=== PATIENT | male | born 1940 | race Asian ===

== ENCOUNTER 2017-09-02 22:33 | Inpatient (IN) | payer MEDICARE, MEDICAID ==
--- NOTE | 2017-09-02 23:31 | ED Physician Chart ---
ED Chief Complaint/HPI - Patient Information Date Seen:: 09/02/17 Time Seen:: 22:45 Chief Complaint:: fractured left hip History of Present Illness:: This is a 77 yo male sent to this er for an evaluation and treatment of a fracture left hip. The patient fell about 11 hrs ago and also has an abrasion of the head with no ko. Allergies:: Allergies Allergy/AdvReac Type Severity Reaction Status Date / Time Penicillins Allergy Verified 09/02/17 22:38 Vitals:: Vital Signs - 8 hr 09/02/17 22:35 Temp 100.9 F HR 73 RR 18 BP 119/56 O2 Sat % 96 Historian:: EMS, Medical Records Review:: Nurse's Note Reviewed, Transfer documents Reviewed ED Review of Systems - Review of Systems General/Constitutional: No fever, No chills, No weight loss, No weakness, No diaphoresis, No edema, No loss of appetite, Other (this patient is unable to give a review of systems.) Skin: No skin lesions, No rash, No bruising Head: No headache, No light-headedness Eyes: No loss of vision, No pain, No diplopia ENT: No earache, No nasal drainage, No sore throat, No tinnitus Neck: No neck pain, No swelling, No thyromegaly, No stiffness, No mass noted Cardio Vascular: No chest pain, No palpitations, No PND, No orthopnea, No edema Pulmonary: No SOB, No cough, No sputum, No wheezing GI: No nausea, No vomiting, No diarrhea, No pain, No melena, No hematochezia, No constipation, No hematemesis G/U: No dysuria, No frequency, No hematuria Musculoskeletal: No bone or joint pain, No back pain, No muscle pain Endocrine: No polyuria, No polydipsia Psychiatric: No prior psych history, No depression, No anxiety, No suicidal ideation Hematopoietic: No bruising, No lymphadenopathy Allergic/Immuno: No urticaria, No angioedema Neurological: No syncope, No focal symptoms, No weakness, No paresthesia, No headache, No seizure, No dizziness, No confusion, No vertigo ED Past Medical History - Past Medical History Obtainable: Yes Past Medical History: HTN, CAD, CVA/TIA, Dyslipidemia, Dementia, Other (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 there is swelling and mild tenderness of the left hip area. Neuro/Psych: Alert/oriented (the patient is disoriented times four.), No focal deficits (there is left sided weakness) ED Labs/Radiology/EKG Results - EKG Interpretations EKG Time:: 23:13 Rate & Rhythm: rate= 75 sinus Hardwick: right ED Assessment - Assessment General Assessment: fracture left hip ED Septic Shock - . Is Septic Shock (SBP<90, OR Lactate>4 mmol\L) present?: No - <6hrs of presentation: Vital Signs: Vital Signs - 8 hr 09/02/17 22:35 Temp 100.9 F HR 73 RR 18 BP 119/56 O2 Sat % 96 ED Reassessment (Disposition) - Reassessment Reassessment Condition:: Unchanged - Diagnosis Diagnosis:: fracture left hip - Patient Disposition Discharge/Transfer:: Acute Care w/in this hosp Admitted to:: Med/Surg Admitting Medical Physician:: Nikhil Garrison Condition at Disposition:: Unchanged
[2017-09-03 00:03] LABS: HEMATOCRIT 39.9 % (41.0-60); HEMOGLOBIN 13.2 gm/dL (12-16); MEAN CELL VOLUME 90.3 fl (80-99); MEAN CORPUSCULAR HEMOGLOBIN 29.9 pg (27.0-31.0); MEAN CORPUSCULAR HGB CONC 33.1 pg (28.0-36.0); MEAN PLATELET VOLUME 8.9 fl; PLATELET COUNT 173 Th/cmm (150-400); RED BLOOD COUNT 4.42 Mil/cmm (3.80-5.80); RED CELL DISTRIBUTION WIDTH 13.3 % (11.5-20.0); WHITE BLOOD COUNT 13.5 Th/cmm (4.8-10.8)
[2017-09-03 00:13] LABS: ALB/GLOB RATIO 1.4 (1.0-1.8); ALBUMIN 4.2 gm/dL (4.2-5.5); ALKALINE PHOSPHATASE 63 U/L (34-104); ANION GAP 11.5 (7.0-16.0); BILIRUBIN,TOTAL 0.7 mg/dL (0.3-1.0); BUN - UREA NITROGEN 22 mg/dL (7-25); CALCIUM SERUM 9.4 mg/dL (8.6-10.3); CARBON DIOXIDE 25.2 mEq/L (21.0-31.0); CHLORIDE 105 mEq/L (98-107); CREATININE - SERUM 0.8 mg/dL (0.7-1.3); GLUCOSE 135 mg/dL (70-105); POTASSIUM SERUM 3.7 mEq/L (3.5-5.1); SGOT 22 U/L (13-39); SGPT/ALT 16 U/L (7-52); SODIUM SERUM 138 mEq/L (136-145); TOTAL PROTEIN,SERUM 7.3 gm/dL (6.0-8.3)
[2017-09-03 00:16] LABS: INR 0.9 (0.5-1.4); PROTHROMBIN TIME (TEST) 9.4 SECONDS (9.5-11.5)
[2017-09-03 00:34] LABS: LYMPHOCYTE 4 % (20-50); MONOCYTE 1 % (2-10); NEUTROPHILS 95 % (40-80); PLATELET ESTIMATE ADEQUATE (NORMAL)
[2017-09-03] MEDS ORDERED: Acetaminophen 500 MG TAB ONE (00:56)
[2017-09-03] MEDS ORDERED: Acetaminophen 500 MG TAB PO ONE (01:00)
[2017-09-03] MEDS ORDERED: Morphine Sulfate 2 mg/mL 1mL Syr IV PRN (04:40)
[2017-09-03] MEDS: D5-0.45NS 1,000 ML IV SCH (05:40)
--- NOTE | 2017-09-03 05:40 | History and Physical ---
History of Present Illness - HPI Chief Complaint: hip pain HPI: 77 y/o male who presents to [facility] ER for hip pain. This is a 77 yo male sent for an evaluation and treatment of a fracture left hip. The patient fell about 11 hrs ago and also has an abrasion of the head w/o LOC. While in the ER patient had initial labwork which revealed the following ... All Lab Results last 24 hours: Laboratory Results - last 24 hr 09/02/17 09/02/17 09/02/17 22:50 22:50 22:50 WBC 13.5 H RBC 4.42 Hgb 13.2 Hct 39.9 L MCV 90.3 MCH 29.9 MCHC Differential 33.1 RDW 13.3 Plt Count 173 MPV 8.9 Add Manual Diff YES Neutrophils (Manual) 95 H Lymphocytes 4 L Monocytes 1 L Platelet Estimate ADEQUATE PT 9.4 L INR 0.90 Sodium 138 Potassium 3.7 Chloride 105 Carbon Dioxide 25.2 Anion Gap 11.5 BUN 22 Creatinine 0.8 Est GFR ( Amer) TNP Est GFR (Non-Af Amer) TNP BUN/Creatinine Ratio 27.5 Glucose 135 H Calcium 9.4 Total Bilirubin 0.7 AST 22 ALT 16 Alkaline Phosphatase 63 Troponin I Total Protein 7.3 Albumin 4.2 Globulin 3.1 Albumin/Globulin Ratio 1.4 09/02/17 22:50 WBC RBC Hgb Hct MCV MCH MCHC Differential RDW Plt Count MPV Add Manual Diff Neutrophils (Manual) Lymphocytes Monocytes Platelet Estimate PT INR Sodium Potassium Chloride Carbon Dioxide Anion Gap BUN Creatinine Est GFR ( Amer) Est GFR (Non-Af Amer) BUN/Creatinine Ratio Glucose Calcium Total Bilirubin AST ALT Alkaline Phosphatase Troponin I < 0.01 L Total Protein Albumin Globulin Albumin/Globulin Ratio Patient had and xray of his left hip which revealed evidence of a fracture. He was subsequently admitted for further evaluation and treatment. Vital Signs: Last Vital Signs Temp 99.1 F 09/03/17 04:21 Pulse 70 09/03/17 04:21 Resp 19 09/03/17 04:21 BP 118/53 09/03/17 04:21 Pulse Ox 96 09/03/17 04:21 Past Medical History Cardiovascular: Report: HTN, Hyperlipidemia Pulmonary: Report: No Pertinent Hx [employer]: Report: CVA (w/ Left Hemiparesis) GI: Report: GERD Psych: Report: Bipolar, Depression, Other (dementia, pseudobulbar affect disorder) Musculoskeletal: Report: Other (left hip pain) Rheumatologic: Report: No pertinent Hx Infectious Disease: Report: No Pertinent Hx Renal/: Report: No Pertinent Hx Endocrine: Report: No Pertinent Hx Dermatology: Report: No Pertinent Hx - Past Surgical History Past Surgical History: No pertinent Hx Family Medical History - Family Member Mother History Unknown: Yes Social History Smoke: No Alcohol: None Drugs: None Lives: Senior Living - Medications Home Medications: Home Medication Medication Instructions Recorded Type Acetaminophen [Tylenol] 325 mg PO Q4HR PRN 09/02/17 History Aspirin EC [Ecotrin] 81 mg PO DAILY 09/02/17 History Cholecalciferol (Vitamin D3) 2,000 unit PO DAILY 09/02/17 History [Vitamin D3] Dextromethorphan/Quinidine 1 cap PO BID 09/02/17 History [Nuedexta 20mg-10mg] Docusate Sodium [Colace] 100 mg PO DAILY 09/02/17 History Lisinopril 10 mg PO DAILY 09/02/17 History Nifedipine [Procardia Xl] 60 mg PO DAILY 09/02/17 History Polyethylene Glycol 3350 [Miralax] 17 gm PO DAILY 09/02/17 History Simvastatin [Zocor] 20 mg PO HS 09/02/17 History - Allergies Allergies/Adverse Reactions: Allergies Allergy/AdvReac Type Severity Reaction Status Date / Time Penicillins Allergy Verified 09/02/17 22:38 Review of Systems - Review of Systems Constitutional: Report: No Significant Eyes: Report: No Significant ENT: Report: No Significant Respiratory: Report: No Significant Cardiovascular: Report: No Significant Gastrointestinal: Report: No Significant Genitourinary: Report: No Significant Musculoskeletal: Report: Other (left hip pain) Skin: Report: No Significant Neurological: Report: No Significant Physical Exam - Physical Exam HEENT: Report: Ears Nose Throat within normal limits, Pharnyx within normal limits Neck: Report: Within normal limits, Thyromegaly Cardiovascular Systems: Report: +s1/s2 noted, Regular, Rate and Rhythm Respiratory: Report: Breath Sounds are within normal limits Abdomen: Report: Non-tender to palpation Back: Report: Inspection of back is within normal limits. Extremities: Report: Non-tender to palpation. Skin: Report: Color of skin is within normal limits Neuro/Psych: Report: Mood affect is within normal limits - Lab Results All Lab Results last 24 hours: Laboratory Results - last 24 hr 09/02/17 09/02/17 09/02/17 22:50 22:50 22:50 WBC 13.5 H RBC 4.42 Hgb 13.2 Hct 39.9 L MCV 90.3 MCH 29.9 MCHC Differential 33.1 RDW 13.3 Plt Count 173 MPV 8.9 Add Manual Diff YES Neutrophils (Manual) 95 H Lymphocytes 4 L Monocytes 1 L Platelet Estimate ADEQUATE PT 9.4 L INR 0.90 Sodium 138 Potassium 3.7 Chloride 105 Carbon Dioxide 25.2 Anion Gap 11.5 BUN 22 Creatinine 0.8 Est GFR ( Amer) TNP Est GFR (Non-Af Amer) TNP BUN/Creatinine Ratio 27.5 Glucose 135 H Calcium 9.4 Total Bilirubin 0.7 AST 22 ALT 16 Alkaline Phosphatase 63 Troponin I Total Protein 7.3 Albumin 4.2 Globulin 3.1 Albumin/Globulin Ratio 1.4 09/02/17 22:50 WBC RBC Hgb Hct MCV MCH MCHC Differential RDW Plt Count MPV Add Manual Diff Neutrophils (Manual) Lymphocytes Monocytes Platelet Estimate PT INR Sodium Potassium Chloride Carbon Dioxide Anion Gap BUN Creatinine Est GFR ( Amer) Est GFR (Non-Af Amer) BUN/Creatinine Ratio Glucose Calcium Total Bilirubin AST ALT Alkaline Phosphatase Troponin I < 0.01 L Total Protein Albumin Globulin Albumin/Globulin Ratio - Assessment Assessment: left hip fracture leukocytosis HTN CVA w/ left hemiparesis hyperlipidemia dementia depression seizure disorder pseudobulbar affect disorder bipolar disorder - Plan Plan: keep NPO ortho consult - Dr. Sterling cardiac consult - Dr. Uriel Frausto CBC.CMP, UA start IV fluids
[2017-09-03] MEDS: Levofloxacin 500mg/100mL 500 MG/100 ML BAG IV SCH (05:52)
[2017-09-03 07:59] LABS: HEMATOCRIT 38.1 % (41.0-60); HEMOGLOBIN 12.7 gm/dL (12-16); MEAN CELL VOLUME 91.4 fl (80-99); MEAN CORPUSCULAR HEMOGLOBIN 30.5 pg (27.0-31.0); MEAN CORPUSCULAR HGB CONC 33.4 pg (28.0-36.0); MEAN PLATELET VOLUME 8.4 fl; PLATELET COUNT 158 Th/cmm (150-400); RED BLOOD COUNT 4.17 Mil/cmm (3.80-5.80); RED CELL DISTRIBUTION WIDTH 13.5 % (11.5-20.0); WHITE BLOOD COUNT 9.7 Th/cmm (4.8-10.8)
[2017-09-03 08:13] LABS: ALB/GLOB RATIO 1.3 (1.0-1.8); ALBUMIN 3.7 gm/dL (4.2-5.5); ALKALINE PHOSPHATASE 57 U/L (34-104); ANION GAP 10.7 (7.0-16.0); BILIRUBIN,TOTAL 0.6 mg/dL (0.3-1.0); BUN - UREA NITROGEN 22 mg/dL (7-25); CALCIUM SERUM 8.8 mg/dL (8.6-10.3); CARBON DIOXIDE 24.1 mEq/L (21.0-31.0); CHLORIDE 108 mEq/L (98-107); CREATININE - SERUM 0.8 mg/dL (0.7-1.3); GLUCOSE 140 mg/dL (70-105); POTASSIUM SERUM 3.8 mEq/L (3.5-5.1); SGOT 18 U/L (13-39); SGPT/ALT 14 U/L (7-52); SODIUM SERUM 139 mEq/L (136-145); TOTAL PROTEIN,SERUM 6.6 gm/dL (6.0-8.3)
[2017-09-03 08:20] LABS: BAND NEUTROPHILE 2 % (0-10); LYMPHOCYTE 8 % (20-50); NEUTROPHILS 85 % (40-80)
[2017-09-03 08:21] LABS: BASOPHIL 0 % (0-3); EOSINOPHIL 0 % (0-5); MONOCYTE 5 % (2-10)
--- NOTE | 2017-09-03 09:49 | Diagnostic Imaging Report ---
Portable chest x-ray HISTORY: Pain, trauma The heart is enlarged. Atherosclerotic calcination seen in the aorta. Density is noted in left lower hemithorax that may be associated with a small effusion. IMPRESSION: 1. Density left lower hemithorax that may be associated with a small pleural effusion 2. Cardiomegaly with atherosclerotic vascular changes
--- NOTE | 2017-09-03 09:50 | Diagnostic Imaging Report ---
Left hip (3 views) HISTORY: Pain, trauma There is a displaced fracture through the left femoral neck. Upward displacement of the shaft. The femoral head remains located within the acetabulum. Severe degenerative changes noted in the visualized region of the lower lumbar spine. IMPRESSION: 1. Displaced left femoral neck fracture
[2017-09-03 10:03] LABS: URINE MICROSCOPIC INDICATED? YES; URINE SOURCE CATH
[2017-09-03 10:07] LABS: URINE BILIRUBIN SMALL (NEGATIVE); URINE BLOOD LARGE (NEGATIVE); URINE GLUCOSE (UA) NEGATIVE (NEGATIVE); URINE KETONE 15 mg/dL (NEGATIVE); URINE LEUKOCYTE ESTERASE NEGATIVE (NEGATIVE); URINE NITRATE POSITIVE (NEGATIVE); URINE PH 5.5 (4.6 - 8.0); URINE PROTEIN >=300 mg/dL (NEGATIVE)
[2017-09-03 11:21] LABS: URINE BACTERIA MANY /hpf (NONE SEEN); URINE CLARITY TURBID (CLEAR); URINE COLOR RED; URINE EPITHELIAL CELLS OCCASIONAL /lpf (FEW); URINE RBC >100 /hpf (0-5); URINE WBC 0-2 /hpf (0-5)
[2017-09-03] MEDS ORDERED: VTE Chemical Prophylaxis Screen/Admission MC PRN (13:10)
[2017-09-04] MEDS: D5-0.45NS 1,000 ML IV SCH (01:20)
--- NOTE | 2017-09-04 02:17 | Consultation ---
DATE OF CONSULTATION: 09/03/2017 ORTHOPEDIC SURGERY CONSULTATION HISTORY: The patient is a 77-year-old gentleman admitted to [facility] on 09/03/2017 because of a hip fracture. I am unable to get any history from the patient. I reviewed the available medical records, transfer records, etc. He carries various diagnoses including bipolar disorder, Alzheimer disease, hypertension, HLD. He has suffered a CVA with left hemiparesis. He is a resident of [facility] and somehow fell out of his wheelchair and when x-rays were taken he was found to have a hip fracture. He apparently also has an abrasion for closed head injury. FAMILY HISTORY: Unknown. SOCIAL HISTORY: No further information is available. PHYSICAL EXAMINATION: GENERAL: The patient is examined in his hospital room at [facility]. He is noncommunicative. He is awake and responds to painful stimuli. No volitional movement on the left. The left leg and hip are slightly shortened and externally rotated compared to the right. Passive movement of his right hip does cause him pain. There is slight swelling of the ankles, worse on the left, cannot palpate the pulses. SKIN: Warm and have good color. IMAGING STUDIES: I reviewed x-rays in the PACS, left hip and pelvis. There is a femoral neck fracture on the left, which is displaced. ORTHOPEDIC DIAGNOSIS: Femoral neck fracture, left. RECOMMENDATIONS: I had a conversation with the patient's daughter, Bindu Cummings. She stated that her father is paralyzed on the left and cannot walk and feels that he should not go through a surgery, that may not benefit him much. I discussed his situation with her and agree with her wishes. His pain will improve in a few weeks and he will be able to continue with his bed to chair routine, with minimal weightbearing on the left, which is what he has now. A hemiarthroplasty replacement type procedure would probably not actually benefit him any. Thank you for this interesting referral. JOB# [id number]
--- NOTE | 2017-09-04 04:45 | History & Physical ---
ADMIT DATE: 09/03/2017 HISTORY OF PRESENT ILLNESS: This 77-year-old male, who was seen and examined at the courtesy of Dr. Garrison. The patient was admitted here through Emergency Room. There was a history of fall. He was evaluated in the Emergency Room, was found to have fracture of the left femoral neck of hip was displaced. He was evaluated in the Emergency Room and then admitted. He was also found to have leukocytosis and urinary tract infection. He has history of hypertension, history of CVA with left-sided weakness markedly, history of hyperlipidemia, history of seizure disorder, history of bipolar disorder, dementia, and depression. There is no proper history available from the patient. Information was obtained from the chart. PAST MEDICAL HISTORY, FAMILY HISTORY, SOCIAL HISTORY: Not much available from the patient. REVIEW OF SYSTEMS: Not much available from the patient. PHYSICAL EXAMINATION: VITAL SIGNS: Heart rate was 72, blood pressure was 120/54, respirations 19, temperature 99.1, pulse ox 96. SKIN: Normal. HEAD: Normocephalic. EYES: Conjunctivae were pink. There is no icterus in the eyes. Pupils reacting to light. NECK: There was no increased jugular venous distention, no thyromegaly, no lymphadenopathy. Carotids equal on both sides. CHEST: Bilaterally symmetrical, moved well with respiration. Respiratory movements equal on both sides. Trachea is central. There is note to percussion. Breath sound, few scattered rales at the bases. CARDIOVASCULAR SYSTEM: PMI not well localized and no positional thrill. No parasternal heave. S1 normal, S2 physiologic. There were no S3, no rub. ABDOMEN: Soft, no tenderness, no rigidity, no guarding and no organomegaly. Bowel sounds normal. EXTREMITIES: No edema. There is no calf tenderness. Peripheral pulses diminished. LABORATORY DATA: On reviewing the labs, WBC count was 13.5, hemoglobin 13.2, hematocrit 39.9, MCV 90.3, MCH 29.9, MCHC 33.1, platelet count 173, neutrophils 95%. INR was 0.90. Sodium 138, potassium 3.7, chloride 105, carbon dioxide 25.2, BUN 22, creatinine 0.8, glucose 135, calcium 9.4, total bilirubin 0.7, AST 22, ALT 16, alkaline phosphatase 63, total protein 7.3, albumin 4.2, globulin 3.1. Troponin was less than 0.01. X-ray of the hip revealed fracture neck of the femur. Urine shows wbc, rbc's more than 100. Repeat CBC showed WBC 9.7, hemoglobin 12.7, hematocrit 38.1, platelet count was 158. Urine nitrite was positive. Troponin was less than 0.01. Chest x-ray showed density in left lower hemithorax that may be associated with a small pleural effusion, cardiomegaly, arteriosclerotic heart disease. EKG showed sinus rhythm, normal axis, no acute changes. IMPRESSION: History of fall, fracture of the left hip, leukocytosis, possible urinary tract infection, possible pneumonia, hypertension, cerebrovascular accident with left-sided weakness, hyperlipidemia, seizure disorder, bipolar disorder, arteriosclerotic heart disease and dementia. Suggest to continue present management. We will get a lab as ordered. We will also echocardiogram to evaluate his left ventricular function and valvular structure. If the echocardiogram and all other lab is okay, then seen no definite contraindication for the planned surgery in this unfortunate 77-year-old man; however, we will carry the usual risks related to his age and his other medical problems. Further recommendation will be made depending on the list available and Dr. Uriel Frausto will be following the patient now. JOB# [id number]
[2017-09-04] MEDS: Levofloxacin 500mg/100mL 500 MG/100 ML BAG IV SCH (05:43)
[2017-09-04 06:17] LABS: ALB/GLOB RATIO 1.3 (1.0-1.8); ALBUMIN 3.6 gm/dL (4.2-5.5); ALKALINE PHOSPHATASE 52 U/L (34-104); ANION GAP 9.7 (7.0-16.0); BILIRUBIN,TOTAL 0.8 mg/dL (0.3-1.0); BUN - UREA NITROGEN 17 mg/dL (7-25); CALCIUM SERUM 8.6 mg/dL (8.6-10.3); CARBON DIOXIDE 24.9 mEq/L (21.0-31.0); CHLORIDE 107 mEq/L (98-107); CHOLESTEROL 114 mg/dL (<200); CREATININE - SERUM 0.8 mg/dL (0.7-1.3); GLUCOSE 130 mg/dL (70-105); HDL -HIGH DENSITY LIPOPROTEIN 40 mg/dL (23-92); POTASSIUM SERUM 3.6 mEq/L (3.5-5.1); SGOT 15 U/L (13-39); SGPT/ALT 10 U/L (7-52); SODIUM SERUM 138 mEq/L (136-145); TOTAL PROTEIN,SERUM 6.3 gm/dL (6.0-8.3); TRIGLYCERIDES 96 mg/dL (<150)
[2017-09-04 06:34] LABS: % BASOPHILS 0.4 % (0.0-2.0); % EOSINOPHILS 0.9 % (0.0-5.0); % LYMPHOCYTES 8.2 % (20.0-50.0); % MONOCYTES 4.6 % (2.0-10.0); % NEUTROPHILS 85.9 % (40.0-80.0); EOSINOPHILE ABSOLUTE 0.1 Th/cmm (0.1-0.4); HEMOGLOBIN 12.2 gm/dL (12-16); LYMPHOCYTE ABSOLUTE 0.7 Th/cmm (1.5-3.0); MEAN CELL VOLUME 91.1 fl (80-99); MEAN CORPUSCULAR HEMOGLOBIN 30.8 pg (27.0-31.0); MEAN CORPUSCULAR HGB CONC 33.8 pg (28.0-36.0); MEAN PLATELET VOLUME 8.4 fl; MONOCYTE ABSOLUTE 0.4 Th/cmm (0.3-1.0); NEUTROPHILE ABSOLUTE 7.8 Th/cmm (1.8-8.0); PLATELET COUNT 137 Th/cmm (150-400); RED BLOOD COUNT 3.95 Mil/cmm (3.80-5.80); RED CELL DISTRIBUTION WIDTH 13.6 % (11.5-20.0)
--- NOTE | 2017-09-04 07:30 | General Progress Note ---
Subjective - Review of Systems Service Date: 09/04/17 Subjective: Patient resting comfortable. Family members elected not to go with surgery due to patient is non-ambulatory. Patient on mechanical soft diet. Objective - Results Result Diagrams: 09/04/17 05:40 09/04/17 05:40 Recent Labs: Laboratory Last Values WBC 9.0 Th/cmm (4.8-10.8) 09/04/17 05:40 RBC 3.95 Mil/cmm (3.80-5.80) 09/04/17 05:40 Hgb 12.2 gm/dL (12-16) 09/04/17 05:40 Hct 36.0 % (41.0-60) L 09/04/17 05:40 MCV 91.1 fl (80-99) 09/04/17 05:40 MCH 30.8 pg (27.0-31.0) 09/04/17 05:40 MCHC Differential 33.8 pg (28.0-36.0) 09/04/17 05:40 RDW 13.6 % (11.5-20.0) 09/04/17 05:40 Plt Count 137 Th/cmm (150-400) L 09/04/17 05:40 MPV 8.4 fl 09/04/17 05:40 Add Manual Diff YES 09/03/17 07:27 Neutrophils % 85.9 % (40.0-80.0) H 09/04/17 05:40 Band Neutrophils % 2 % (0-10) 09/03/17 07:27 Lymphocytes % 8.2 % (20.0-50.0) L 09/04/17 05:40 Monocytes % 4.6 % (2.0-10.0) 09/04/17 05:40 Eosinophils % 0.9 % (0.0-5.0) 09/04/17 05:40 Basophils % 0.4 % (0.0-2.0) 09/04/17 05:40 Neutrophils (Manual) 85 % (40-80) H 09/03/17 07:27 Lymphocytes 8 % (20-50) L 09/03/17 07:27 Monocytes 5 % (2-10) 09/03/17 07:27 Eosinophils 0 % (0-5) 09/03/17 07:27 Basophils 0 % (0-3) 09/03/17 07:27 Platelet Estimate ADEQUATE (NORMAL) 09/02/17 22:50 PT 9.4 SECONDS (9.5-11.5) L 09/02/17 22:50 INR 0.90 (0.5-1.4) 09/02/17 22:50 Sodium 138 mEq/L (136-145) 09/04/17 05:40 Potassium 3.6 mEq/L (3.5-5.1) 09/04/17 05:40 Chloride 107 mEq/L (98-107) 09/04/17 05:40 Carbon Dioxide 24.9 mEq/L (21.0-31.0) 09/04/17 05:40 Anion Gap 9.7 (7.0-16.0) 09/04/17 05:40 BUN 17 mg/dL (7-25) 09/04/17 05:40 Creatinine 0.8 mg/dL (0.7-1.3) 09/04/17 05:40 Est GFR ( Amer) TNP 09/04/17 05:40 Est GFR (Non-Af Amer) TNP 09/04/17 05:40 BUN/Creatinine Ratio 21.3 09/04/17 05:40 Glucose 130 mg/dL (70-105) H 09/04/17 05:40 Calcium 8.6 mg/dL (8.6-10.3) 09/04/17 05:40 Total Bilirubin 0.8 mg/dL (0.3-1.0) 09/04/17 05:40 AST 15 U/L (13-39) 09/04/17 05:40 ALT 10 U/L (7-52) 09/04/17 05:40 Alkaline Phosphatase 52 U/L (34-104) 09/04/17 05:40 Troponin I < 0.01 ng/mL (0.01-0.05) L 09/02/17 22:50 Total Protein 6.3 gm/dL (6.0-8.3) 09/04/17 05:40 Albumin 3.6 gm/dL (4.2-5.5) L 09/04/17 05:40 Globulin 2.7 gm/dL 09/04/17 05:40 Albumin/Globulin Ratio 1.3 (1.0-1.8) 09/04/17 05:40 Triglycerides 96 mg/dL (<150) 09/04/17 05:40 Cholesterol 114 mg/dL (<200) 09/04/17 05:40 LDL Cholesterol Direct 55 mg/dL (75-193) L 09/04/17 05:40 HDL Cholesterol 40 mg/dL (23-92) 09/04/17 05:40 TSH 1.65 uIU/ml (0.34-5.60) 09/04/17 05:40 Urine Source CATH 09/03/17 09:30 Urine Color RED 09/03/17 09:30 Urine Clarity TURBID (CLEAR) 09/03/17 09:30 Urine pH 5.5 (4.6 - 8.0) 09/03/17 09:30 Ur Specific [place] >= 1.030 (1.005-1.030) 09/03/17 09:30 Urine Protein >=300 mg/dL (NEGATIVE) 09/03/17 09:30 Urine Glucose (UA) NEGATIVE mg/dL (NEGATIVE) 09/03/17 09:30 Urine Ketones 15 mg/dL (NEGATIVE) H 09/03/17 09:30 Urine Blood LARGE (NEGATIVE) H 09/03/17 09:30 Urine Nitrate POSITIVE (NEGATIVE) H 09/03/17 09:30 Urine Bilirubin SMALL (NEGATIVE) H 09/03/17 09:30 Urine Urobilinogen 1.0 E.U./dL (0.2 - 1.0) 09/03/17 09:30 Ur Leukocyte Esterase NEGATIVE (NEGATIVE) 09/03/17 09:30 Urine RBC >100 /hpf (0-5) H 09/03/17 09:30 Urine WBC 0-2 /hpf (0-5) 09/03/17 09:30 Ur Epithelial Cells OCCASIONAL /lpf (FEW) 09/03/17 09:30 Urine Bacteria MANY /hpf (NONE SEEN) H 09/03/17 09:30 - Physical Exam Vitals and I&O: Vital Signs Temp 98.8 F 09/04/17 04:00 Pulse 67 09/04/17 05:54 Resp 18 09/04/17 04:00 BP 116/59 09/04/17 05:54 Pulse Ox 95 09/04/17 04:00 Intake & Output 09/03/17 09/04/17 09/04/17 18:59 06:59 18:59 Intake Total 0 1083.333 Output Total 200 250 Balance -200 833.333 Weight (lbs) 55.565 kg 56.971 kg Intake: Intake, IV Amount 983.333 D5-0.45NS 1,000 ml @ 50 983.333 mls/hr IV .Q20H [facility] Rx#: [id number] Oral 0 0 Other 100 Output: Urine 200 250 Other: Weight Source Bedscale Bedscale Active Medications: Current Medications Enalaprilat (Vasotec) 1.25 mg IVP Q6HR [facility] Stop: 11/02/17 05:59 Last Admin: 09/04/17 05:54 Dose: Not Given Dextrose/Sodium Chloride (D5-0.45ns) 1,000 mls @ 50 mls/hr IV .Q20H [facility] Stop: 11/02/17 04:44 Last Admin: 09/04/17 01:20 Dose: 50 mls/hr Levofloxacin (Levaquin Pb) 500 mg in 100 mls @ 100 mls/hr IV Q24HR [facility] Stop: 11/02/17 05:44 Last Admin: 09/04/17 05:43 Dose: 100 mls/hr Miscellaneous (Vte [employer] Prophylaxis Screen/ Admission) 1 ea MC PRN PRN PRN Reason: PROTOCOL Stop: 11/02/17 13:09 Morphine Sulfate (Morphine) 2 mg IV Q4HR PRN PRN Reason: Pain (Severe) LEVEL 7-10 Stop: 11/02/17 04:39 Last Admin: 09/03/17 10:04 Dose: 2 mg General: Alert, No acute distress HEENT: Atraumatic, PERRLA, EOMI Neck: Supple Cardiovascular: Regular rate, Normal S1, Normal S2 Lungs: Clear to auscultation Abdomen: Bowel sounds, Soft Assessment/Plan - Assessment Assessment: left hip fracture leukocytosis UTI HTN CVA w/ left hemiparesis hyperlipidemia dementia depression seizure disorder pseudobulbar affect disorder bipolar disorder - Plan Plan: mechanical soft diet Heplock continue IV Levofloxacin ortho consult - Dr. Sterling cardiac consult - Dr. Uriel Frausto CBC.CMP, UA DC IV fluids. will resume home meds.
[2017-09-04] MEDS: Vitamin D3 2,000 IU SGL PO SCH ×2 (09:22→10:59)
[2017-09-04] MEDS: Dextromethorphan/Quinidine 20mg/10mg Cap PO SCH ×3 (09:22→18:30)
[2017-09-04] MEDS: NIFEdipine 30 mg ER Tab PO SCH (09:26)
[2017-09-04] MEDS: POLYETHYLENE GLYCOL 3350 17 GM PACK PO SCH ×2 (09:26→10:59)
[2017-09-05] MEDS: Levofloxacin 500mg/100mL 500 MG/100 ML BAG IV SCH (05:54)
--- NOTE | 2017-09-05 07:27 | General Progress Note ---
Subjective - Review of Systems Service Date: 09/05/17 Subjective: Febrile this AM. Patient resting comfortable. Family members elected not to go with surgery due to patient non-ambulatory. Patient on mechanical soft diet. Objective - Results Result Diagrams: 09/04/17 05:40 09/04/17 05:40 Recent Labs: Laboratory Last Values WBC 9.0 Th/cmm (4.8-10.8) 09/04/17 05:40 RBC 3.95 Mil/cmm (3.80-5.80) 09/04/17 05:40 Hgb 12.2 gm/dL (12-16) 09/04/17 05:40 Hct 36.0 % (41.0-60) L 09/04/17 05:40 MCV 91.1 fl (80-99) 09/04/17 05:40 MCH 30.8 pg (27.0-31.0) 09/04/17 05:40 MCHC Differential 33.8 pg (28.0-36.0) 09/04/17 05:40 RDW 13.6 % (11.5-20.0) 09/04/17 05:40 Plt Count 137 Th/cmm (150-400) L 09/04/17 05:40 MPV 8.4 fl 09/04/17 05:40 Add Manual Diff YES 09/03/17 07:27 Neutrophils % 85.9 % (40.0-80.0) H 09/04/17 05:40 Band Neutrophils % 2 % (0-10) 09/03/17 07:27 Lymphocytes % 8.2 % (20.0-50.0) L 09/04/17 05:40 Monocytes % 4.6 % (2.0-10.0) 09/04/17 05:40 Eosinophils % 0.9 % (0.0-5.0) 09/04/17 05:40 Basophils % 0.4 % (0.0-2.0) 09/04/17 05:40 Neutrophils (Manual) 85 % (40-80) H 09/03/17 07:27 Lymphocytes 8 % (20-50) L 09/03/17 07:27 Monocytes 5 % (2-10) 09/03/17 07:27 Eosinophils 0 % (0-5) 09/03/17 07:27 Basophils 0 % (0-3) 09/03/17 07:27 Platelet Estimate ADEQUATE (NORMAL) 09/02/17 22:50 PT 9.4 SECONDS (9.5-11.5) L 09/02/17 22:50 INR 0.90 (0.5-1.4) 09/02/17 22:50 Sodium 138 mEq/L (136-145) 09/04/17 05:40 Potassium 3.6 mEq/L (3.5-5.1) 09/04/17 05:40 Chloride 107 mEq/L (98-107) 09/04/17 05:40 Carbon Dioxide 24.9 mEq/L (21.0-31.0) 09/04/17 05:40 Anion Gap 9.7 (7.0-16.0) 09/04/17 05:40 BUN 17 mg/dL (7-25) 09/04/17 05:40 Creatinine 0.8 mg/dL (0.7-1.3) 09/04/17 05:40 Est GFR ( Amer) TNP 09/04/17 05:40 Est GFR (Non-Af Amer) TNP 09/04/17 05:40 BUN/Creatinine Ratio 21.3 09/04/17 05:40 Glucose 130 mg/dL (70-105) H 09/04/17 05:40 Calcium 8.6 mg/dL (8.6-10.3) 09/04/17 05:40 Total Bilirubin 0.8 mg/dL (0.3-1.0) 09/04/17 05:40 AST 15 U/L (13-39) 09/04/17 05:40 ALT 10 U/L (7-52) 09/04/17 05:40 Alkaline Phosphatase 52 U/L (34-104) 09/04/17 05:40 Troponin I < 0.01 ng/mL (0.01-0.05) L 09/02/17 22:50 Total Protein 6.3 gm/dL (6.0-8.3) 09/04/17 05:40 Albumin 3.6 gm/dL (4.2-5.5) L 09/04/17 05:40 Globulin 2.7 gm/dL 09/04/17 05:40 Albumin/Globulin Ratio 1.3 (1.0-1.8) 09/04/17 05:40 Triglycerides 96 mg/dL (<150) 09/04/17 05:40 Cholesterol 114 mg/dL (<200) 09/04/17 05:40 LDL Cholesterol Direct 55 mg/dL (75-193) L 09/04/17 05:40 HDL Cholesterol 40 mg/dL (23-92) 09/04/17 05:40 TSH 1.65 uIU/ml (0.34-5.60) 09/04/17 05:40 Urine Source CATH 09/03/17 09:30 Urine Color RED 09/03/17 09:30 Urine Clarity TURBID (CLEAR) 09/03/17 09:30 Urine pH 5.5 (4.6 - 8.0) 09/03/17 09:30 Ur Specific [place] >= 1.030 (1.005-1.030) 09/03/17 09:30 Urine Protein >=300 mg/dL (NEGATIVE) 09/03/17 09:30 Urine Glucose (UA) NEGATIVE mg/dL (NEGATIVE) 09/03/17 09:30 Urine Ketones 15 mg/dL (NEGATIVE) H 09/03/17 09:30 Urine Blood LARGE (NEGATIVE) H 09/03/17 09:30 Urine Nitrate POSITIVE (NEGATIVE) H 09/03/17 09:30 Urine Bilirubin SMALL (NEGATIVE) H 09/03/17 09:30 Urine Urobilinogen 1.0 E.U./dL (0.2 - 1.0) 09/03/17 09:30 Ur Leukocyte Esterase NEGATIVE (NEGATIVE) 09/03/17 09:30 Urine RBC >100 /hpf (0-5) H 09/03/17 09:30 Urine WBC 0-2 /hpf (0-5) 09/03/17 09:30 Ur Epithelial Cells OCCASIONAL /lpf (FEW) 09/03/17 09:30 Urine Bacteria MANY /hpf (NONE SEEN) H 09/03/17 09:30 - Physical Exam Vitals and I&O: Vital Signs Temp 100.2 F 09/05/17 04:00 Pulse 71 09/05/17 04:00 Resp 19 09/05/17 04:00 BP 126/70 09/05/17 04:00 Pulse Ox 93 09/05/17 04:00 Intake & Output 09/04/17 09/05/1718 18:59 06:59 18:59 Intake Total 674 Output Total 1300 Balance -626 Weight (lbs) 58.287 kg 53.479 kg Intake: Oral 574 Other 100 Output: Urine 1300 Other: # Bowel Movements 1 Weight Source Bedscale Bedscale Active Medications: Current Medications Acetaminophen (Tylenol) 325 mg PO Q4HR PRN PRN Reason: Pain or Fever >101 Stop: 11/03/17 07:27 Last Admin: 09/04/17 22:56 Dose: 325 mg Aspirin (Ecotrin) 81 mg PO DAILY [facility] Stop: 11/03/17 08:59 Last Admin: 09/04/17 10:58 Dose: 81 mg Dextromethorphan/Quinidine (Nuedexta 20mg-10mg) 1 cap PO BID [facility] Stop: 11/03/17 08:59 Last Admin: 09/04/17 18:30 Dose: 1 cap Docusate Sodium (Colace) 100 mg PO DAILY [facility] Stop: 11/03/17 08:59 Last Admin: 09/04/17 10:59 Dose: 100 mg Levofloxacin (Levaquin Pb) 500 mg in 100 mls @ 100 mls/hr IV Q24HR [facility] Stop: 11/02/17 05:44 Last Admin: 09/05/17 05:54 Dose: 100 mls/hr Lisinopril (Zestril) 10 mg PO DAILY [facility] Stop: 11/03/17 08:59 Last Admin: 09/04/17 09:25 Dose: Not Given Miscellaneous (Vte Chemical Prophylaxis Screen/ Admission) 1 ea [facility] PRN PRN PRN Reason: PROTOCOL Stop: 11/02/17 13:09 Morphine Sulfate (Morphine) 2 mg IV Q4HR PRN PRN Reason: Pain (Severe) LEVEL 7-10 Stop: 11/02/17 04:39 Last Admin: 09/03/17 10:04 Dose: 2 mg Nifedipine (Procardia Xl) 60 mg PO DAILY [facility] Stop: 11/03/17 08:59 Last Admin: 09/04/17 09:26 Dose: Not Given Polyethylene Glycol (Miralax) 17 gm PO DAILY [facility] Stop: 11/03/17 08:59 Last Admin: 09/04/17 10:59 Dose: 17 gm Simvastatin (Zocor) 20 mg PO HS [facility]; Protocol Stop: 11/03/17 20:59 Last Admin: 09/04/17 20:37 Dose: 20 mg Vitamin D (Vitamin D3) 2,000 iu PO DAILY [facility] Stop: 11/03/17 08:59 Last Admin: 09/04/17 10:59 Dose: 2,000 iu General: Alert, No acute distress HEENT: Atraumatic, PERRLA, EOMI Neck: Supple Cardiovascular: Regular rate, Normal S1, Normal S2 Lungs: Clear to auscultation Abdomen: Bowel sounds, Soft Assessment/Plan - Assessment Assessment: left hip fracture leukocytosis resolved fever of unknown orgin ... possible secondary to hip fracture HTN CVA w/ left hemiparesis hyperlipidemia dementia depression seizure disorder pseudobulbar affect disorder bipolar disorder - Plan Plan: mechanical soft diet Heplock continue IV Levofloxacin ortho consult - Dr. Sterling cardiac consult - Dr. Uriel Frausto CBC.CMP, UA chest Xray will resume home meds.
[2017-09-05] MEDS: POLYETHYLENE GLYCOL 3350 17 GM PACK PO SCH (08:17)
[2017-09-05] MEDS: NIFEdipine 30 mg ER Tab PO SCH (08:17)
[2017-09-05] MEDS: Dextromethorphan/Quinidine 20mg/10mg Cap PO SCH ×2 (08:18→16:58)
[2017-09-05] MEDS: Vitamin D3 2,000 IU SGL PO SCH (08:19)
[2017-09-05 08:39] LABS: % BASOPHILS 0.3 % (0.0-2.0); % EOSINOPHILS 1.3 % (0.0-5.0); % MONOCYTES 5.9 % (2.0-10.0); EOSINOPHILE ABSOLUTE 0.1 Th/cmm (0.1-0.4); HEMATOCRIT 37.6 % (41.0-60); HEMOGLOBIN 12.7 gm/dL (12-16); MEAN CELL VOLUME 90.3 fl (80-99); MEAN CORPUSCULAR HEMOGLOBIN 30.5 pg (27.0-31.0); MEAN CORPUSCULAR HGB CONC 33.8 pg (28.0-36.0); MEAN PLATELET VOLUME 8.5 fl; MONOCYTE ABSOLUTE 0.5 Th/cmm (0.3-1.0); NEUTROPHILE ABSOLUTE 7.3 Th/cmm (1.8-8.0); PLATELET COUNT 141 Th/cmm (150-400); RED BLOOD COUNT 4.16 Mil/cmm (3.80-5.80); RED CELL DISTRIBUTION WIDTH 13.6 % (11.5-20.0); WHITE BLOOD COUNT 8.6 Th/cmm (4.8-10.8)
[2017-09-05 10:40] LABS: % LYMPHOCYTES 7.7 % (20.0-50.0); % NEUTROPHILS 84.8 % (40.0-80.0)
[2017-09-05 10:41] LABS: BAND NEUTROPHILE 0 % (0-10); LYMPHOCYTE 0 % (20-50); LYMPHOCYTE ABSOLUTE 0.7 Th/cmm (1.5-3.0); NEUTROPHILS 0 % (40-80)
[2017-09-05 10:42] LABS: BASOPHIL 0 % (0-3); EOSINOPHIL 0 % (0-5); MONOCYTE 0 % (2-10)
[2017-09-05 10:43] LABS: BAND NEUTROPHILE 0 % (0-10); BASOPHIL 0 % (0-3); EOSINOPHIL 0 % (0-5); LYMPHOCYTE 0 % (20-50); MONOCYTE 0 % (2-10); NEUTROPHILS 0 % (40-80)
--- NOTE | 2017-09-05 13:33 | Diagnostic Imaging Report ---
Portable chest x-ray HISTORY: Shortness of breath Compared with the prior exam of 08/25/2017, the heart is enlarged. There is improved visualization of the left lower lobe and left hemidiaphragm. No definite focal processes IMPRESSION: 1. Clearing with improved visualization of the left lower lobe. No definite focal processes 2. Cardiomegaly with atherosclerotic vascular changes
[2017-09-06] MEDS: Levofloxacin 500mg/100mL 500 MG/100 ML BAG IV SCH (05:21)
--- NOTE | 2017-09-06 07:19 | General Progress Note ---
Subjective - Review of Systems Service Date: 09/06/17 Subjective: Febrile this AM. Patient resting comfortable. Family members elected not to go with surgery due to patient non-ambulatory. Patient on mechanical soft diet. Patient to be discharged back to SNF. Objective - Results Result Diagrams: 09/05/17 08:15 09/04/17 05:40 Recent Labs: Laboratory Last Values WBC 8.6 Th/cmm (4.8-10.8) 09/05/17 08:15 RBC 4.16 Mil/cmm (3.80-5.80) 09/05/17 08:15 Hgb 12.7 gm/dL (12-16) 09/05/17 08:15 Hct 37.6 % (41.0-60) L 09/05/17 08:15 MCV 90.3 fl (80-99) 09/05/17 08:15 MCH 30.5 pg (27.0-31.0) 09/05/17 08:15 MCHC Differential 33.8 pg (28.0-36.0) 09/05/17 08:15 RDW 13.6 % (11.5-20.0) 09/05/17 08:15 Plt Count 141 Th/cmm (150-400) L 09/05/17 08:15 MPV 8.5 fl 09/05/17 08:15 Add Manual Diff YES 09/03/17 07:27 Neutrophils % 84.8 % (40.0-80.0) H 09/05/17 08:15 Band Neutrophils % 0 % (0-10) 09/05/17 08:15 Lymphocytes % 7.7 % (20.0-50.0) L 09/05/17 08:15 Monocytes % 5.9 % (2.0-10.0) 09/05/17 08:15 Eosinophils % 1.3 % (0.0-5.0) 09/05/17 08:15 Basophils % 0.3 % (0.0-2.0) 09/05/17 08:15 Neutrophils (Manual) 0 % (40-80) L 09/05/17 08:15 Lymphocytes 0 % (20-50) L 09/05/17 08:15 Monocytes 0 % (2-10) L 09/05/17 08:15 Eosinophils 0 % (0-5) 09/05/17 08:15 Basophils 0 % (0-3) 09/05/17 08:15 Platelet Estimate ADEQUATE (NORMAL) 09/02/17 22:50 PT 9.4 SECONDS (9.5-11.5) L 09/02/17 22:50 INR 0.90 (0.5-1.4) 09/02/17 22:50 Sodium 138 mEq/L (136-145) 09/04/17 05:40 Potassium 3.6 mEq/L (3.5-5.1) 09/04/17 05:40 Chloride 107 mEq/L (98-107) 09/04/17 05:40 Carbon Dioxide 24.9 mEq/L (21.0-31.0) 09/04/17 05:40 Anion Gap 9.7 (7.0-16.0) 09/04/17 05:40 BUN 17 mg/dL (7-25) 09/04/17 05:40 Creatinine 0.8 mg/dL (0.7-1.3) 09/04/17 05:40 Est GFR ( Amer) TNP 09/04/17 05:40 Est GFR (Non-Af Amer) TNP 09/04/17 05:40 BUN/Creatinine Ratio 21.3 09/04/17 05:40 Glucose 130 mg/dL (70-105) H 09/04/17 05:40 Calcium 8.6 mg/dL (8.6-10.3) 09/04/17 05:40 Total Bilirubin 0.8 mg/dL (0.3-1.0) 09/04/17 05:40 AST 15 U/L (13-39) 09/04/17 05:40 ALT 10 U/L (7-52) 09/04/17 05:40 Alkaline Phosphatase 52 U/L (34-104) 09/04/17 05:40 Troponin I < 0.01 ng/mL (0.01-0.05) L 09/02/17 22:50 Total Protein 6.3 gm/dL (6.0-8.3) 09/04/17 05:40 Albumin 3.6 gm/dL (4.2-5.5) L 09/04/17 05:40 Globulin 2.7 gm/dL 09/04/17 05:40 Albumin/Globulin Ratio 1.3 (1.0-1.8) 09/04/17 05:40 Triglycerides 96 mg/dL (<150) 09/04/17 05:40 Cholesterol 114 mg/dL (<200) 09/04/17 05:40 LDL Cholesterol Direct 55 mg/dL (75-193) L 09/04/17 05:40 HDL Cholesterol 40 mg/dL (23-92) 09/04/17 05:40 TSH 1.65 uIU/ml (0.34-5.60) 09/04/17 05:40 Urine Source CATH 09/03/17 09:30 Urine Color RED 09/03/17 09:30 Urine Clarity TURBID (CLEAR) 09/03/17 09:30 Urine pH 5.5 (4.6 - 8.0) 09/03/17 09:30 Ur Specific [place] >= 1.030 (1.005-1.030) 09/03/17 09:30 Urine Protein >=300 mg/dL (NEGATIVE) 09/03/17 09:30 Urine Glucose (UA) NEGATIVE mg/dL (NEGATIVE) 09/03/17 09:30 Urine Ketones 15 mg/dL (NEGATIVE) H 09/03/17 09:30 Urine Blood LARGE (NEGATIVE) H 09/03/17 09:30 Urine Nitrate POSITIVE (NEGATIVE) H 09/03/17 09:30 Urine Bilirubin SMALL (NEGATIVE) H 09/03/17 09:30 Urine Urobilinogen 1.0 E.U./dL (0.2 - 1.0) 09/03/17 09:30 Ur Leukocyte Esterase NEGATIVE (NEGATIVE) 09/03/17 09:30 Urine RBC >100 /hpf (0-5) H 09/03/17 09:30 Urine WBC 0-2 /hpf (0-5) 09/03/17 09:30 Ur Epithelial Cells OCCASIONAL /lpf (FEW) 09/03/17 09:30 Urine Bacteria MANY /hpf (NONE SEEN) H 09/03/17 09:30 - Physical Exam Vitals and I&O: Vital Signs Temp 99.2 F 09/06/17 04:00 Pulse 77 09/06/17 04:00 Resp 19 09/06/17 04:00 BP 102/57 09/06/17 04:00 Pulse Ox 95 09/06/17 04:00 Intake & Output 09/05/17 09/06/17 09/06/17 18:59 06:59 18:59 Output Total 300 Balance -300 Weight (lbs) 52.163 kg Output: Other 300 Other: Weight Source Bedscale Active Medications: Current Medications Acetaminophen (Tylenol) 325 mg PO Q4HR PRN PRN Reason: Pain or Fever >101 Stop: 11/03/17 07:27 Last Admin: 09/04/17 22:56 Dose: 325 mg Aspirin (Ecotrin) 81 mg PO DAILY [facility] Stop: 11/03/17 08:59 Last Admin: 09/05/17 08:19 Dose: 81 mg Dextromethorphan/Quinidine (Nuedexta 20mg-10mg) 1 cap PO BID [facility] Stop: 11/03/17 08:59 Last Admin: 09/05/17 16:58 Dose: 1 cap Docusate Sodium (Colace) 100 mg PO DAILY [facility] Stop: 11/03/17 08:59 Last Admin: 09/05/17 08:18 Dose: 100 mg Levofloxacin (Levaquin Pb) 500 mg in 100 mls @ 100 mls/hr IV Q24HR [facility] Stop: 11/02/17 05:44 Last Admin: 09/06/17 05:21 Dose: 100 mls/hr Lisinopril (Zestril) 10 mg PO DAILY [facility] Stop: 11/03/17 08:59 Last Admin: 09/05/17 08:18 Dose: 10 mg Miscellaneous (Vte Chemical Prophylaxis Screen/ Admission) 1 ea [facility] PRN PRN PRN Reason: PROTOCOL Stop: 11/02/17 13:09 Morphine Sulfate (Morphine) 2 mg IV Q4HR PRN PRN Reason: Pain (Severe) LEVEL 7-10 Stop: 11/02/17 04:39 Last Admin: 09/03/17 10:04 Dose: 2 mg Nifedipine (Procardia Xl) 60 mg PO DAILY [facility] Stop: 11/03/17 08:59 Last Admin: 09/05/17 08:17 Dose: 60 mg Polyethylene Glycol (Miralax) 17 gm PO DAILY [facility] Stop: 11/03/17 08:59 Last Admin: 09/05/17 08:17 Dose: 17 gm Simvastatin (Zocor) 20 mg PO HS [facility]; Protocol Stop: 11/03/17 20:59 Last Admin: 09/05/17 21:25 Dose: 20 mg Vitamin D (Vitamin D3) 2,000 iu PO DAILY [facility] Stop: 11/03/17 08:59 Last Admin: 09/05/17 08:19 Dose: 2,000 iu General: Alert, No acute distress HEENT: Atraumatic, PERRLA, EOMI Neck: Supple Cardiovascular: Regular rate, Normal S1, Normal S2 Lungs: Clear to auscultation Abdomen: Bowel sounds, Soft Assessment/Plan - Assessment Assessment: left hip fracture leukocytosis resolved fever of unknown orgin ... possible secondary to hip fracture HTN CVA w/ left hemiparesis hyperlipidemia dementia depression seizure disorder pseudobulbar affect disorder bipolar disorder - Plan Plan: mechanical soft diet Heplock continue IV Levofloxacin ortho consult - Dr. Sterling cardiac consult - Dr. Uriel Frausto CBC.CMP, UA chest Xray will resume home meds.
[2017-09-06] MEDS: NIFEdipine 30 mg ER Tab PO SCH (09:56)
--- NOTE | 2017-09-06 09:59 | Cardiology ---
09/03/[address] Garrison. PROCEDURE: Echocardiogram. M-MODE ECHOCARDIOGRAM: Mitral valve, anterior leaflet of mitral valve shows normal excursion, EF velocity. Posterior leaflet of the mitral valve shows normal excursion. Left ventricular posterior wall shows increased thickness, normal excursion. Interventricular septum shows increased thickness, normal excursion, hypertrophy of the left ventricle, ejection fraction 68%. Left atrium normal. Aortic root shows normal dimension, normal excursion of aortic leaflets. CONCLUSION: Hypertrophy of the left ventricle, ejection fraction 68%. 2D ECHO: Long axis view showed normal sized left ventricle with hypertrophy of the left ventricle. Left atrium normal. Aortic root shows normal dimension, normal excursion of aortic leaflets. Short axis view of mitral valve normal. Short axis view of aortic valve normal. Apical four chamber view showed normal sized left ventricle with hypertrophy of the left ventricle. Left atrium normal. Right ventricular cavity, right atrium normal. No pericardial effusion. CONCLUSION: Hypertrophy of the left ventricle, ejection fraction 68%. Doppler study shows moderate mitral regurgitation, moderate aortic regurgitation, moderate tricuspid regurgitation, moderate pulmonary regurgitation, right ventricular systolic pressure 61 mmHg with moderate pulmonary hypertension. CONCLUSION: Hypertrophy of the left ventricle, ejection fraction 68%, moderate mitral regurgitation, moderate tricuspid regurgitation, moderate pulmonary regurgitation, moderate aortic regurgitation, and moderate pulmonary hypertension. [facility]# [id number]
[2017-09-06] MEDS: Dextromethorphan/Quinidine 20mg/10mg Cap PO SCH (10:04)
[2017-09-06] MEDS: Vitamin D3 2,000 IU SGL PO SCH (10:05)
[2017-09-06] MEDS: POLYETHYLENE GLYCOL 3350 17 GM PACK PO SCH (10:05)
--- NOTE | 2017-09-12 14:58 | Discharge Summary ---
DATE OF DISCHARGE: 09/06/2017 PRELIMINARY DIAGNOSES: 1. Left hip fracture. 2. Leukocytosis. 3. Hypertension. 4. Cerebrovascular accident with left hemiparesis. 5. Hyperlipidemia. 6. Dementia. 7. Depression. 8. Seizure disorder. 9. Pseudobulbar affect disorder. 10. Bipolar disorder. DISCHARGE DIAGNOSES: 1. Left hip fracture. 2. Leukocytosis. 3. Hypertension. 4. Cerebrovascular accident with left hemiparesis. 5. Hyperlipidemia. 6. Dementia. 7. Depression. 8. Seizure disorder. 9. Pseudobulbar affect disorder. 10. Bipolar disorder. HISTORY OF PRESENT ILLNESS: This is a 77-year-old male who presents to [facility] ER for hip pain. The patient was sent to the ER for evaluation and treatment of a fracture to the left hip. The patient fell about 11 hours prior to admission and sustained an abrasion to the forehead without loss of consciousness. LABORATORY DATA: While in the ER, the patient had some initial lab work, which revealed the following: White count of 13.5, hemoglobin of 13.2, hematocrit of 39.9, platelets of 179, chloride 105, bicarbonate 25, BUN 22, creatinine 0.8, glucose was 135. Troponin I was negative. AST 22, ALT 16, alkaline phosphatase 63. HOSPITAL COURSE: The patient had also UA which appeared to show urinary tract infection. The patient was initially started on IV antibiotics, kept n.p.o., given IV fluids. Ortho consult, Dr. Watson as well as cardiac clearance to Dr. Grijalva. HOSPITAL COURSE: The patient improved during his hospital stay, was seen and evaluated by Ortho for left hip fracture. Family members opted to defer surgery since the patient is nonambulatory. The patient was seen and evaluated for PT and also was treated for urinary tract infection, started on Rocephin. Repeat white count showed decrease, back to normal range. The patient was subsequently discharged in stable condition to the nursing home facility for further evaluation and treatment. JOB# [id number]
== END 2017-09-06 15:32 | DRG 871 ==
LOC: ER 22:33 → MSI 09-03 04:30
PROVIDERS: ADMIT Family Medicine; ATTEND Family Medicine
DX: A41.9 Sepsis, unspecified organism (principal); S72.002A Fracture of unspecified part of neck of left femur, initial encounter for closed fracture; R53.2 Functional quadriplegia; J18.9 Pneumonia, unspecified organism; N39.0 Urinary tract infection, site not specified; I69.354 Hemiplegia and hemiparesis following cerebral infarction affecting left non-dominant side; I10 Essential (primary) hypertension; I25.10 Atherosclerotic heart disease of native coronary artery without angina pectoris; E78.5 Hyperlipidemia, unspecified; G80.9 Cerebral palsy, unspecified; Z93.0 Tracheostomy status; K21.9 Gastro-esophageal reflux disease without esophagitis; G40.909 Epilepsy, unspecified, not intractable, without status epilepticus; F48.2 Pseudobulbar affect; F31.9 Bipolar disorder, unspecified; S00.81XA Abrasion of other part of head, initial encounter; G30.9 Alzheimer's disease, unspecified; F02.80 Dementia in other diseases classified elsewhere, unspecified severity, without behavioral disturbance, psychotic disturbance, mood disturbance, and anxiety; W18.30XA Fall on same level, unspecified, initial encounter; Y93.89 Activity, other specified; Y92.89 Other specified places as the place of occurrence of the external cause; Y99.8 Other external cause status; Z88.0 Allergy status to penicillin; Z79.82 Long term (current) use of aspirin
CPT/HCPCS: 36415-UA; 71045-TC; 73501; 80053-TC; 80061-TC; 81001-TC; 84443-TC; 84484-TC; 85007-TC; 85025-TC; 85610-TC; 87086-90; 93005; 96374; 97530; J0696; J1956; J2270; Z7610